=== PATIENT | female | born 1985 | race Caucasian/White ===

== ENCOUNTER 2016-12-11 07:22 | Emergency (ER) | payer MEDICAID, OTHER ==
[~2016-12-11] VITALS: Ht 154.9 cm; Wt 136.0 kg
[2016-12-11 09:22] LABS: GLUCOSE URINE NEGATIVE (NEGATIVE); KETONES URINE NEGATIVE (NEGATIVE); LEUKOCYTE ESTERASE URINE NEGATIVE (NEGATIVE); NITRITE URINE NEGATIVE (NEGATIVE); OCCULT BLOOD URINE NEGATIVE (NEGATIVE); PH URINE 6.5 (4.5-8.0); PROTEIN URINE NEGATIVE (NEGATIVE); UROBILINOGEN URINE 0.2 E.U./dL (0.2-1.0)
[2016-12-11 09:27] LABS: CLARITY URINE CLEAR (CLEAR); COLOR URINE YELLOW (YELLOW)
[2016-12-11] MEDS ORDERED: ONDANSETRON HCL 4MG/2ML VIAL IV STA (10:17)
[2016-12-11] MEDS ORDERED: KETOROLAC 30MG/ML VIAL IV STA (10:17)
[2016-12-11] MEDS ORDERED: SODIUM CHLORIDE 0.9% 1,000 ML IV ONE (10:17)
[2016-12-11 10:41] LABS: BASOPHILS % 0.4 % (0.0-2.0); EOSINOPHILS % 0.5 % (0.0-5.0); HEMATOCRIT. 40.3 % (36.0-48.0); HEMOGLOBIN. 13.4 g/dL (12.0-16.0); LYMPHOCYTES % 18.4 % (20.0-50.0); MEAN CORPUSCULAR HEMOGLOBIN 28.7 pg (28.0-32.0); MEAN CORPUSCULAR VOLUME 86.4 fL (81.0-99.0); MEAN PLATELET VOLUME 7.9 fl (7.4-10.4); MONOCYTES % 3.8 % (2.0-8.0); NEUTROPHILS % 76.9 % (40.0-76.0); PLATELET 261 x1000/uL (130-400); RED BLOOD CELL COUNT 4.67 mill/uL (4.2-5.4); RED CELL DISTRIBUTION WIDTH 14.5 % (11.6-14.6)
[2016-12-11 10:53] LABS: CHLORIDE 104 mEq/L (98-107)
[2016-12-11 10:58] LABS: CARBON DIOXIDE 30 mEq/L (21-32)
[2016-12-11 11:06] LABS: PROTHROMBIN TIME 10.3 sec
[2016-12-11] MEDS ORDERED: MORPHINE SULFATE 4 MG/ML CPJ (NOT FOR IM USE) IV ONE (11:30)
[2016-12-11 12:31] VITALS: BP 142/73
[2016-12-11 13:57] LABS: *AMPHETAMINES SCREEN URINE NEGATIVE (NEGATIVE); *BARBITURATES SCREEN URINE NEGATIVE (NEGATIVE); *BENZODIAZEPINES SCREEN URINE NEGATIVE (NEGATIVE); *COCAINE SCREEN URINE NEGATIVE (NEGATIVE); CANNABINOID URINE SCREEN NEGATIVE (NEGATIVE); METHADONE URINE SCREEN NEGATIVE (NEGATIVE); OPIATES URINE SCREEN NEGATIVE (NEGATIVE); PHENCYCLIDINE URINE SCREEN NEGATIVE (NEGATIVE)
== END 2016-12-11 13:57 | disposition home or self-care (01) ==
LOC: ER 08:29
DX: R10.30 Lower abdominal pain, unspecified (principal); K59.00 Constipation, unspecified; N92.6 Irregular menstruation, unspecified
CPT/HCPCS: 36415; 80053; 80305; 81003; 83690; 85025; 85610; 96374; 96375; 99284; J1885; J2270; J2405; J7030

== ENCOUNTER 2017-12-25 17:32 | Emergency (ER) | payer OTHER ==
[~2017-12-25] VITALS: Ht 154.9 cm; Wt 154.3 kg
[2017-12-25 17:41] VITALS: BP 184/81
== END 2017-12-25 20:32 | disposition left against medical advice (07) ==
LOC: ER 19:50
DX: R20.2 Paresthesia of skin (principal); M79.675 Pain in left toe(s); R68.84 Jaw pain; Z98.890 Other specified postprocedural states
CPT/HCPCS: 99281

== ENCOUNTER 2020-02-06 00:52 | Emergency (ER) | payer OTHER ==
[~2020-02-06] VITALS: Ht 154.9 cm; Wt 111.0 kg
[2020-02-06 02:14] LABS: BASOPHILS % 0.6 % (0.0-2.0); EOSINOPHILS % 0.5 % (0.0-5.0); HEMATOCRIT. 37.9 % (36.0-48.0); HEMOGLOBIN. 12.9 g/dL (12.0-16.0); LYMPHOCYTES % 28.5 % (20.0-50.0); MEAN CORPUSCULAR HEMOGLOBIN 31.1 pg (28.0-32.0); MEAN CORPUSCULAR VOLUME 91.3 fL (81.0-99.0); MONOCYTES % 4.6 % (2.0-8.0); NEUTROPHILS % 65.8 % (40.0-76.0); PLATELET 217 x1000/uL (130-400); RED BLOOD CELL COUNT 4.16 mill/uL (4.2-5.4); RED CELL DISTRIBUTION WIDTH 13.3 % (11.6-14.6)
[2020-02-06 02:21] LABS: CHLORIDE 109 mEq/L (98-107)
[2020-02-06 02:25] LABS: ETHANOL BLOOD < 10 mg/dL
[2020-02-06 05:07] VITALS: BP 120/61
== END 2020-02-06 05:07 | disposition home or self-care (01) ==
LOC: ER 00:52
DX: R53.1 Weakness (principal); Z98.890 Other specified postprocedural states
CPT/HCPCS: 36415; 71045; 80053; 80320; 83880; 84484; 85025; 93005; 99285; G0480

== ENCOUNTER 2023-10-24 12:31 | Emergency (ER) | payer MEDICAID, OTHER ==
[~2023-10-24] VITALS: Ht 157.5 cm; Wt 122.0 kg
[2023-10-24 12:56] VITALS: TEMP 98.3; O2SAT 100
[2023-10-24 13:48] LABS: BASOPHILS % 0.5 % (0.0-2.0); EOSINOPHILS % 0.9 % (0.0-5.0); HEMATOCRIT. 38.2 % (36.0-48.0); HEMOGLOBIN. 13.1 g/dL (12.0-16.0); LYMPHOCYTES % 23.9 % (20.0-50.0); MEAN CORPUSCULAR HGB CONC 34.3 g/dL (31.0-37.0); MEAN CORPUSCULAR VOLUME 87.6 fL (81.0-99.0); MEAN PLATELET VOLUME 8.3 fl (7.4-10.4); MONOCYTES % 4.6 % (2.0-8.0); NEUTROPHILS % 70.1 % (40.0-76.0); PLATELET 268 x1000/uL (130-400); RED BLOOD CELL COUNT 4.37 mill/uL (4.2-5.4); RED CELL DISTRIBUTION WIDTH 15.2 % (11.6-14.6); WHITE BLOOD COUNT 8.2 x1000/uL (4.5-11.0)
[2023-10-24 13:56] LABS: CHLORIDE 107 mEq/L (98-107); POTASSIUM 4.1 mEq/L (3.5-5.1); SODIUM 139 mEq/L (136-145)
[2023-10-24 13:57] LABS: CARBON DIOXIDE 27 mEq/L (21-32)
[2023-10-24 14:02] LABS: CREATININE 0.8 mg/dL (0.6-1.0); GLUCOSE 102 mg/dL (70-105); UREA NITROGEN BLOOD 15 mg/dL (9-23)
[2023-10-24 14:09] LABS: TROPONIN I HIGH SENSITIVITY < 4 ng/L (3.0-34)
[2023-10-24 16:30] LABS: HCG SCREEN NEGATIVE
[2023-10-24 16:52] VITALS: BP 109/50; PULSE 70; RESP 15
== END 2023-10-24 16:54 | disposition home or self-care (01) ==
LOC: ER 12:31
DX: M79.602 Pain in left arm (principal); Z98.890 Other specified postprocedural states
CPT/HCPCS: 36415; 71045; 80048; 84484; 84703; 85025; 93005; 99285

== ENCOUNTER 2024-01-11 12:46 | Emergency (ER) | payer MEDICAID ==
[~2024-01-11] VITALS: Ht 157.5 cm; Wt 122.0 kg
[2024-01-11 12:49] VITALS: BP 137/111; PULSE 65; TEMP 98.7; O2SAT 100
== END 2024-01-11 14:20 | disposition home or self-care (01) ==
LOC: ER 13:19
DX: F43.9 Reaction to severe stress, unspecified (principal); Z98.890 Other specified postprocedural states
CPT/HCPCS: 99281

== ENCOUNTER 2024-01-18 17:10 | Emergency (ER) | payer MEDICAID, OTHER ==
[~2024-01-18] VITALS: Ht 157.5 cm; Wt 118.0 kg
[2024-01-18 17:17] VITALS: BP 146/95; PULSE 75; RESP 16; TEMP 98.4; O2SAT 99
== END 2024-01-18 19:50 | disposition home or self-care (01) ==
LOC: ER 17:10
DX: F41.9 Anxiety disorder, unspecified (principal); R60.0 Localized edema; Z98.890 Other specified postprocedural states
CPT/HCPCS: 99281